=== PATIENT | female | born 1960 | race Caucasian/White ===

== ENCOUNTER 2025-01-06 16:35 | Emergency (ER) | payer MEDICAID, SELFPAY ==
[2025-01-06 16:36] VITALS: BP 136/83; PULSE 88; RESP 14; TEMP 36.2; O2SAT 98; BMI 21.7
--- NOTE | 2025-01-06 16:51 | RAD_ITS ---
PROCEDURE: CHEST PA AND LATERAL 01/06/2025 REASON FOR EXAM: NONPRODUCTIVE COUGH WITH WHEEZING, HISTORY OF COPD TECHNIQUE: Procedure Code: RADCXR Modality: DX Procedure: CHEST PA AND LATERAL FINDINGS: Hyperinflation. Normal mediastinum. Lungs are clear. RAD/Chest PA and Lateral IMPRESSION: No acute abnormality Reading [facility]
[2025-01-06 16:52] VITALS: O2SAT 100
--- NOTE | 2025-01-06 16:52 | EDS_ITS ---
HPI History of Present Illness Chief Complaint: Shortness of Breath Detail of Chief Complaint: Numerous symptoms which include SOB, weight loss, hematochezia and frequenc Informant: patient and family Onset/Context/Timing Onset: - (Detailed HPI narrative since onset is different depending on the complaint) Context: Sudden Onset Timing: Intermittent Quality: Detailed HPI narrative Location: Respiratory, GI and constitutional/generalized Current Severity: Mild Maximum Severity: Moderate Worsened by: Detailed HPI narrative Relieved by: Nothing Associated Symptoms Associated Symptoms: Denies bone pain or back pain. Intermittent night sweats Narrative Narrative: Patient is a 64-year-old woman. She is a smoker of approximately 1/2 pack/day. #1 reason that prompted her to come to the emergency department was blood when she had a bowel movement. Stool was brown. She states there was bright red blood. She has history of hemorrhoids. She denies liver disease. Denies history of diverticulosis. She has a remote history of peptic ulcer disease. She denies orthostatic symptoms. She was seen at [facility] on , . She smoked prior to coming in. She does endorse dyspnea, dyspnea with activity. She denies orthopnea or PND. Denies history of congestive heart failure. She denies abdominal pain, nausea or vomiting. She denies bruising easily. She denies orthostatic symptoms. She does complain of bump on her back. Where she points is the spinous process of C7. She also complains of a bump on her scalp which is the occiput bone bilaterally. Apparently she has had incontinence of stool and urine. She does endorse frequency. She denies any radicular pain. She denies low back pain. She denies trouble with ambulation. She has had 3 children. She has no known history of rectocele or cystocele. Prior similar symptoms: Yes Recent Illness/Hospitalization: Yes [facility] Medical History Asthma Hx of nephrolithotomy with removal of calculi Medical History no medical history Home Medications ?Medication ?Instructions ?Recorded ?Last Taken ?Type albuterol sulfate 90 mcg/actuation 2 puff inhalation Q 4H PRN PRN 01/06/25 Unkno wn Rx aerosol inhaler (Ventolin HFA) Wheezing ##1 nitrofurantoin 100 mg PO Q12 #10 CAPSULES 1 1/30/25 Unknown Rx monohydrate/macrocrystals 100 mg capsule Allergy/AdvReac Type Severity Reaction Status Date / Time Penicillins (PCN) Allergy SOB Verified 01/06/25 16:37 Family History no significant family his Surgical History no surgical history Social History (Updated 01/06/25 @ 16:[address] Radhames Gonzalez MD) household members: family Smoking Status: Current every day smoker tobacco type: cigarettes ROS ROS ED Constitutional Constitutional ED: Reports weight loss and other Details: Reports 2 to 3 pound weight loss over the past month. ; Denies chills, fever(s), subjective or sweats Eyes Eyes: Denies blurry vision, change in vision or diplopia ENT ENT ED: Reports rhinorrhea; Denies ear pain or sore throat Cardiovascular Cardiovascular: Denies chest pain, orthopnea, palpitations, paroxysmal nocturnal dyspnea or racing heartbeat Respiratory/Chest Respiratory/Chest: Reports cough and dyspnea on exertion; Denies orthopnea, paroxysmal nocturnal dyspnea or sputum Gastrointestinal Gastrointestinal: Reports other Details: Bright red blood with bowel movement today. Stool was brown in color. ; Denies abdominal pain, constipation, diarrhea, melena, nausea or vomiting Genitourinary Genitourinary ED: Reports other Details: Urgency and incontinence Musculoskeletal Musculoskeletal: Denies arthralgias, back pain, myalgias or neck pain Integumentary Denies rash Neurologic Neurologic: Reports weakness; Denies headache(s) or paresthesias Hematologic/Lymphatic Hematologic/Lymphatic: Reports systems reviewed and no addt'l complaints, except as documented EXAM Physical Exam Const Vital Signs: 01/06/25 16:36 01/06/25 16:52 01/06/25 17:20 Temperature 97.1 F L Temperature Source Temporal Pulse Rate 88 74 Respiratory Rate 14 14 Respiratory Effort Normal Respiratory Depth Normal Respiratory Pattern Normal Normal Blood Pressure 136/83 H Blood Pressure Mean 100 Pulse Ox 98 Oxygen Delivery Method Room Air Room Air 01/06/25 18:21 01/06/25 18:25 Temperature 98 F Temperature Source Pulse Rate 81 81 Respiratory Rate 16 16 Respiratory Effort Respiratory Depth Respiratory Pattern Blood Pressure 125/72 H 125/72 H Blood Pressure Mean 89 89 Pulse Ox 99 99 Oxygen Delivery Method Room Air Positive well nourished and well developed Constitutional Narrative: Patient's vitals are marked for an elevated blood pressure. She looks much older than age. General Appearance ED: well developed and pallor HEENT Reports dry mucous membranes HEENT Narrative: Ears are normal. External auditory canal normal. TMs are normal. Nares patent with slight clear drainage noted. Posterior pharynx no erythema or exudate. Uvula midline. No deviation tongue or protrusion. Mouth ED: Yes dry mucous membranes Mouth: dry mucous membranes Eyes PERRL and EOMs intact bilaterally General Eye ED: Negative for pale conjunctiva or scleral icterus Neck no lymphadenopathy, supple and no JVD Neck Narrative: Trachea is midline. There is no inspiratory expiratory stridor. Chest Wall inspection of chest normal and palpation of chest normal Resp normal respiratory effort and No clear to auscultation bilaterally Auscultation: wheezes expiratory wheezes and throughout and diminished lung sounds; Negative for rales or rhonchi Cardio regular rate, regular rhythm, S1 normal heart sound, S2 normal heart sound and no murmurs GI normal to inspection, nondistended, normoactive bowel sounds, non-tender, non- distended and no masses; Negative for hepatosplenomegaly GI Narrative: Or there is no fissures or fistulas noted. Patient does have an external hemorrhoid. There is no active bleeding. Stool is brown. She does have rectal tone. There is no palpable mass. There was no blood noted. Extremity normal to inspection General Extremety ED: Negative for edema or tenderness General Extremity: Negative for edema Neuro oriented x3 and CN's II-XII intact bilaterally Sensorium / Orientation: alert Psych Mood & Affect: depressed Skin no rashes or lesions noted, no wounds and No skin turgor normal General Skin Exam: pallor; Negative for elasticity normal or jaundice MDM MDM MDM Narrative Medical decision making narrative: With many years of smoking weight loss cough will obtain chest x-ray to assess for any parenchymal lesions i.e. cancer. CBC to assess white count differential. Basic metabolic panel assess renal function, calcium. Her hematochezia is due to external hemorrhoid. Since she is wheezing with nonproductive cough will obtain chest x-ray to assess for pneumonia as well. She will receive albuterol for her wheezing and reevaluated. History & Record Review Additional record(s) reviewed:: No prior records Lab Data Attestation: I reviewed the patient's lab results. Lab results narrative: CBC reveals H&H 11.8 and 36.0 with normal indices. White count differential is normal. Basic metabolic panel reveals mild hypokalemia otherwise normal Labs: Laboratory Results - last 24 hr 01/06/25 01/06/25 17:00 17:58 WBC 8.5 RBC 4.01 L Hgb 11.8 L Hct 36.0 L MCV 89.8 MCH 29.4 MCHC 32.8 RDW Std Deviation 48.3 H RDW Coeff of Ebony 14.6 Plt Count 231 MPV 10.3 Immature Gran % (Auto) 0.200 Neut % (Auto) 55.8 Lymph % (Auto) 30.9 Owen % (Auto) 9.3 Eos % (Auto) 2.6 Baso % (Auto) 1.2 H Absolute Neuts (auto) 4.8 Absolute Lymphs (auto) 2.63 Nucleated RBC % 0 Sodium 141 Potassium 3.2 L Chloride 104 Carbon Dioxide 26.4 Anion Gap 10 BUN 16 Creatinine 0.85 Estim Creat Clear Calc 51.12 Est GFR (MDRD) Non-Af 77 BUN/Creatinine Ratio 18.9 Glucose 96 Calcium 8.6 Urine Color Straw Urine Clarity Clear Urine pH 7.0 Ur Specific [place] 1.015 Urine Protein Negative Urine Glucose (UA) Normal Urine Ketones Negative Urine Occult Blood 10 H Urine Nitrite Negative Urine Bilirubin Negative Urine Urobilinogen Normal Ur Leukocyte Esterase 25 H Urine RBC 0 SEEN Urine WBC 0-5 SEEN Ur Squamous Epith Cells 0-5 SEEN Urine Bacteria 4+ Urine Mucus 0 SEEN Urinalysis is suggestive of urinary tract infection. Since she has frequency and urgency with incontinence we will treat with Macrobid. Culture was sent. This is a clean/noncontaminated specimen. Radiography Chest X-Ray - ED: 2 View, Read by ED Physician (Patient has some slight hyperaeration and degenerative change with thoracic spine. There is no acute process noted. Reinterpreted by me at 1727), Normal, Heart, Mediastinum, No Acute Disease, Chronic Changes and No Infiltrates Diagnostic Testing: Clinical Impression(s) from Imaging Studies Chest X-Ray 01/06/25 16:51 IMPRESSION: No acute abnormality Reading Location: [facility] Treatment and Re-Evaluation :: Patient was reassessed at 1749. Patient is resting company in the bed. She denies tachypnea or tachycardia. She has no wheezing on auscultation. She was informed of results. Plan is discharged with prescription for albuterol MDI and suspect her low potassium is due to diarrhea. Plan was to discharge however her urine a has not resulted. Will await to discharge patient Discharge Plan Triage Chief Complaint: Shortness of Breath ED Provider: Radhames Gonzalez Dx/Rx/DC Orders Clinical Impression: Acute exacerbation of chronic obstructive pulmonary disease, Acute bronchospasm, Acute cystitis without hematuria, Hypokalemia, Diarrhea, Bleeding hemorrhoid Instructions: ED COPD Flare, ED Hemorrhoids, ED Cystitis Female Adult Prescriptions: New albuterol sulfate [Ventolin HFA] 90 mcg/actuation HFA aerosol inhaler 2 puff inhalation Q4H PRN PRN (Reason: Wheezing) Qty: 1 0RF nitrofurantoin monohyd/m-cryst 100 mg capsule 100 mg PO Q12 Qty: 10 0RF Primary Care Provider: Care Physician,No Primary Referrals: Aida Johnston MD [Med Staff - [employer], Internal Medicine - [facility]] - 5- 7 Days Care Physician,No Primary [Primary Care Provider, Medical] Activity Restrictions/Additional Instructions: It is in your best interest to quit smoking. Print Language: Belarusian Disposition Disposition: Home, Self Care Discharge Date/Time: 01/06/25 18:25
[2025-01-06 17:07] LABS: Hematocrit 36.0 % (37-47); Hemoglobin 11.8 g/dL (12.0-15.0); Immature Granulocytes Count 0.020 X10^3/uL (0.0-0.0); Mean Corp Hgb Conc 32.8 g/dL (32-36); Mean Corpuscular Volume 89.8 fL (81-99); Mean Platelet Vol. 10.3 fl (6.2-12.0); NRBC Flagged by Analyzer 0 % (0-5); Platelet Count 231 K/mm3 (150-450); RBC Distribution Width CV 14.6 % (11.6-14.6); RBC Distribution Width SD 48.3 fl (35.1-43.9); Red Blood Count 4.01 M/mm3 (4.2-5.4); White Blood Count 8.5 K/mm3 (4.4-11.0)
--- OUTSIDE RECORDS SUMMARY | 2025-01-06 17:09 | XMS RPT_ITS | CCD ---
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 Has been compliant with Remeron for mood and sleep. Reports improved body aches and nausea vomiting and diarrhea. Per staff has been calm, cooperative, compliant with treatment but overall isolative and withdrawn to her room. Medications: baclofen, 10 mg, Oral, TID gabapentin, 100 mg, Oral, 3 times per day mirtazapine, 7.5 mg, Oral, Nightly nicotine, 1 patch, TransDERmal, Daily traMADol, 100 mg, Oral, Q4H Followed by [START ON 06/19/2024] traMADol, 100 mg, Oral, q6h Followed by [START ON 06/20/2024] traMADol, 100 mg, Oral, q8h PRN medications: acetaminophen OR acetaminophen, cloNIDine, dicyclomine, hydrOXYzine pamoate, loperamide, naloxone, OLANZapine OR OLANZapine (ZyPREXA) 5 mg in sterile water 1 mL injection, ondansetron ODT, traZODone Mental Status Examination: Vitals : BP 120/86 Pulse 77 Temp 36.9 ?C (98.4 ?F) (Temporal) Resp 18 Ht 1.549 m (5' 1) Wt 56.7 kg (125 lb) SpO2 95% BMI 23.62 kg/m? APPEARANCE: Disheveled. BEHAVIOR: normal PSYCHOMOTOR: within normal limits SPEECH: Regular rate, rhythm, volume and articulation and Soft LANGUAGE: Naming intact MOOD: Apathetic AFFECT: Flat THOUGHT PROCESS: Goal-directed THOUGHT CONTENT: normal PERCEPTIONS/HALLUCINATIONS: denies ABSTRACTION: fair INSIGHT: fair, including concerning psychiatric condition. JUDGMENT: fair, including concerning psychiatric condition. ORIENTATION: Appropriate to age, Person, Place, and Time MEMORY: recent and remote memory intact ATTENTION SPAN: fair CONCENTRATION: fair FUND OF KNOWLEDGE: fair GAIT: resting in bed ROS: [x] All negative/unchanged except if checked. Explain positive(checked items) below: [] Constitutional [] Eyes [] Ear/Nose/Mouth/Throat [] Respiratory [] CV [] GI [] [] Musculoskeletal [] Skin/Breast [] Neurological [] Endocrine [] Heme/Lymph [] Allergic/Immunologic Explanation: denies ASSESSMENT: 1.) Unspecified depressive disorder, rule out major depression versus substance-induced depression 2.) Adjustment disorder 3.) Methamphetamine use disorder 4.) Opioid use disorder Patient symptoms :show no change Patient continues to need, on a daily basis, active treatment furnished directly by or requiring the supervision of inpatient psychiatric personnel. Treatment Plan: -Continue Remeron 7.5 mg at night for mood, sleep and appetite stimulation -ADM is following for management of opioid withdrawal and they started her on a tramadol taper. - She remains a very limited historian, I did attempt to reach out to emergency contact however the number kept ringing and she does not have phone numbers for her children. She was instructed to write down phone numbers when her children come in so that I can reach out and contact them for corroborating information. She will be discharged when psychiatrically and medically stable. Continue Current Medications if not otherwise stated. Will continue to titrate medications and assess for effectiveness and tolerability. Continue Follow-up. Continue crisis intervention oriented psychotherapy, group and milieu therapies. Social work and transitional care continue to assist with necessary family liaison and discharge planning. Pt expressed agreement and understanding with treatment plan. PSYCHOTHERAPY/COUNSELING: Supportive, therapeutic interview Note: Please note this report has been produced using speech recognition software and may contain errors related to that system including errors in grammar, punctuation, and spelling, as well as words and phrases (more content not included)... [facility] Clinical Note 06-18-2024 Note Date & Type Note Facility 06-18-2024 Note Patient declined ful l smoking cessation counseling. She is accepting of handout with contact information for future reference. Discussed NRT options, coaching/counseling, possible RX cessation medications available, and distractions related to smoking. NRT patches ordered this admission. [facility] Clinical Note 06-17-2024 Note Date & Type Note Facility 06-17-2024 Note Department of Psychi atry History and Physical - Adult .CHIEF COMPLAINT / REASON FOR ADMISSION: suicidal ideation Patient was seen after discussion with staff and reviewing the chart HISTORY OF PRESENT ILLNESS: The patient is a 63 y.o. female who presents with worsening depression and suicidal ideation. Per emergency department note patient presented with suicidal thoughts over the past 2 days. Apparently her neighbors called the police and her dogs were taken away from her. She has since felt very depressed and suicidal. On exam, she is resting in bed, appears frail, weak possibly malnourished. Reports feeling sad that her dogs were taken away from her and she does not know why. Reports that she has had difficulty sleeping and eating recently. Has ongoing depression. Has some passive thoughts of wanting to be without an active plan at this time. Has also had some ongoing nausea vomiting diarrhea over the past 1 day. She has denied auditory or visual hallucinations. There was a comment made to staff yesterday about possible bedbugs however when I talked to her about this she denies having any bites, seeing any bedbugs and apparently made this comment in jest yesterday. Other than this information she was fairly superficial with her responses, she does allude to some substance use history as well including somewhat frequent methamphetamine use and apparent daily heroin use as well. Discussed with her that we will talk with addiction medicine for recommendations. She is agreeable with care going forward. Medications Prior to Admission: mirtazapine, 7.5 mg, Oral, Nightly PRN medications: acetaminophen OR acetaminophen, hydrOXYzine pamoate, OLANZapine OR OLANZapine (ZyPREXA) 5 mg in sterile water 1 mL injection, ondansetron ODT, traZODone Compliance: n/a Psychiatric Review of Systems (Negative if unchecked) [x] Change in appetite/weight [x] Change in sleep MOOD: [x] Anhedonia [x] Decreased/low mood [x] Worthlessness/Guilt [x] Hopeless/Helpless [x] Decreased energy [x] Decreased concentration ANXIETY: [x] Excessive worry/difficulty controlling worry [] Irritability [x] Easily fatigued [x] Difficulty concentrating [] Obsessions [] Palpitations/Chest pain [] Diaphoresis [] Shortness of breath [] Trembling/shaking [] Sense of doom/fear of dying [] Agoraphobia [] Derealization/Depersonalization PTSD: [] Nightmares [] Flashbacks [] Avoidance [] Hyperarousal [] Hypervigilance CHATO: [] Inflated self esteem/grandiosity [] Elevated energy [] Decreased need for sleep [] Talkative/rapid/pressured speech [] Flight of ideas/racing thoughts [] Distractibility [] Increased goal directed activity [] Risky behaviors/activities [] Irritability [] Psychomotor agitation PSYCHOSIS: [] Auditory hallucinations [] Visual hallucinations [] Tactile hallucinations [] Delusions [] Disorganized speech [] Paranoia Past Psychiatric History: Reports a history of depression. She is not currently under the care of her provider. She has 1 admission about 10 years ago. Reports she has had multiple near suicide attempts by apparently jumping off a bridge but people stopped me. She has been on Mellaril in the past, no other medications. Past Medical History: Past Medical History: Diagnosis Date COPD (chronic obstructive pulmonary disease) ([facility]) Depression DM, gestational, diet controlled GERD (gastroesophageal reflux disease) Headache RLS (restless legs syndrome) Substance abuse ([facility]) Coccaine addiction, cigs Past Surgical History: Past Surgical History: Procedure Laterality Date KIDNEY STONE SURGERY Allergies: Patient has no known allergies. Family History: Family History Problem Relation Name Age of Onset High Blood Pressure Mother Cancer Mother High Blood Pressure Father Social History: Reports she is from the area. She currently lives with her son and is on SSI. She does report having utilities present at her house. Reports she has 1/12 grade education. She denies access to firearms. Substance Abuse History: ETOH: social drinker Illicit Drugs: Reports using methamphetamines about 3-4 times per week when her daughter is over, also reports using heroin on a daily basis, she does not know how much she uses but reports it is a line. She has fairly limited unreliable history regarding her substance use and her story changes. Tobacco: 1 to 10 cigarettes per day REVIEW OF SYSTEMS: ROS: [x] All negative/unchanged except if checked. Explain positive(checked items) below: [x] Constitutional [] Eyes [] Ear/Nose/Mouth/Throat [] Respiratory [] CV [x] GI [] [] Musculoskeletal [] Skin/Breast [] Neurological [] Endocrine [] Heme/Lymph [] Allergic/Immunologic Explanation: n/v/d Mental Status Examination: Vitals : BP 137/64 Pulse 63 Temp 37.1 ?C (98.8 ?F) (Temporal) Resp 16 Ht 1.549 m (5' 1) Wt 56.7 kg (125 lb) (more content not included)... [facility] Summary Purpose Family History No Family History Records Found Advance Directives No Advanced Directives Records Found Additional Source Comments INFORMATION SOURCE (unrecogn ized section and content) DATE CREATED AUTHOR 06/21/2024 [facility] FOR RECORDS PERTAINING TO PATIENTS WHO ARE OR HAVE BEEN ENROLLED IN A CHEMICAL DEPENDENCY/SUBSTANCEABUSE PROGRAM, SOME INFORMATION MAY BE OMITTED. This clinical summary was aggregated from multiple sources. Caution should be exercised in using it in the provision of clinical care. This summary normalizes information from multiple sources, and as a consequence, information in this document may materially change the coding, format and clinical context of patient data. In addition, data may be omitted in some cases. CLINICAL DECISIONS SHOULD BE BASED ON THE PRIMARY CLINICAL RECORDS. [employer] [facility]. provides no warranty or guarantee of the accuracy or completeness of information in this document.
[2025-01-06 17:20] VITALS: PULSE 74; RESP 14
[2025-01-06] MEDS: Albuterol 2.5 MG/3 ML VIAL.NEB. INHALATION (17:20)
[2025-01-06 17:28] LABS: Anion Gap 10 (5-15); BUN 16 mg/dL (4-19); BUN/Creat Ratio 18.9 RATIO (10-20); Calcium,Total 8.6 mg/dL (7.6-11.0); Carbon Dioxide 26.4 mmol/L (21.0-32.0); Chloride 104 mmol/L (98-108); Estimated Creatinine Clearance 51.12 ml/min (50-250); Glucose 96 mg/dL (70-99); Potassium 3.2 mmol/L (3.3-5.1)
[2025-01-06 18:06] LABS: Color, Urine Straw (Yellow); Glucose, Dipstick Normal (Normal); Ketone-Dipstick Negative (Negative); Leukocyte Esterase-Dipstick 25 /ul (Negative); Mucous, Urine 0 SEEN /hpf (<or=2+); Nitrite-Dipstick Negative (Negative); Occult Blood-Urine 10 /ul (Negative); Protein-Dipstick Negative (Negative); Red Blood Cells-Urine 0 SEEN /hpf (0-5); Specific Gravity, Urine 1.015 (1.002-1.030); Urine Bilirubin Dipstick Negative (Negative)
[2025-01-06 18:10] LABS: Squamous Epithelial Cells - UA 0-5 SEEN /hpf (5-10)
[2025-01-06 18:21] VITALS: BP 125/72; PULSE 81; RESP 16; O2SAT 99
[2025-01-06 18:25] VITALS: BP 125/72; PULSE 81; RESP 16; TEMP 36.6; O2SAT 99
== END 2025-01-06 18:25 | disposition home or self-care (01) ==
PROVIDERS: Emergency Provider Emergency Medicine; Visit Provider Emergency Medicine
DX: J44.1 Chronic obstructive pulmonary disease with (acute) exacerbation (principal); N30.00 Acute cystitis without hematuria; R19.7 Diarrhea, unspecified; F17.210 Nicotine dependence, cigarettes, uncomplicated; K64.9 Unspecified hemorrhoids; J98.01 Acute bronchospasm; E87.6 Hypokalemia
CPT/HCPCS: 71046; 80048; 81001; 85025; 87077; 87086; 87088; 87186; 94640; 99283